=== PATIENT | female | born 1945 | race African-American/Black ===

== ENCOUNTER → 2017-04-08 | Outpatient (CLI) | payer OTHER ==
[~2017-04-08] MED LIST: ACETAMINOPHEN325 M1 PO; ACID CONTROL20 MG PO; AMLODIPINE BESY10 MG PO; AMLODIPINE BESYL5 MG PO; ASPIRIN325 PO; B-122500 MCG PO; BASE, PCCA RAPID1 GM PO; BENAZEPRIL HCL40 MG PO; BINOSTO70 MG PO; BISACODYL SUPP10 MG RECTAL; CHLORTHALIDONE25 MG PO; CLEOCIN HCL300 MG PO; CLONAZEPAM 0.50.5 M1 PO; CLONIDINE-TTS0.3 MG TRANSDERM; COLACE100 MG PO; ENDOCET 5-3251 EACH PO; EXELON1 EAC1 TRANSDERM; FLEXERIL PO; FOLIC ACID1 MG PO; FOSAMAX 70 MG T70 M1 PO; FOSAMAX 70 MG T70 MG PO; HYDROCODON-ACE1 EACH PO; JANUMET 50-5001 EACH PO; LASIX 40 MG TAB40 M1 PO; LEVAQUIN 500 M500 M2 PO; LEVEMIR SUBQ; LIDODERM 5%1 PATCH TRANSDERM; LOMOTIL TABLET1 EACH PO; METHOTREXATE 22.5 M1 PO; MOM PO; NORCO 5-325 TA1 EACH PO; NORTRIPTYLINE H50 MG PO; NORVASC10 MG PO; NYSTATIN1 EAC6; NYSTATIN15 GM TOP; PEPCID AC20 M1 PO; PERCOCET PO; PRAVASTATIN SOD40 MG PO; PREDNISOLONE 5 M5 M1 PO; PREDNISONE 5 MG5 M1; RANEXA500 MG; SENNA PO; SPIRONOLACTONE25 M1 PO; TOPROL XL100 MG PO; TOPROL XL50 MG PO; ULTRAM 50MG TAB50 MG PO; VICODIN 5-5001 EACH PO; VITAMIN E400 UNIT PO
--- NOTE | ~2017-04-08 | 2DMMODE ---
[facility] [place] [address] 2 D/M-MODE ECHOCARDIOGRAM Name: KITTY IRVING Room #: REG [facility]#: [id number] Admission: 04/08/17 Attend Phys: Jomar Crane MD Discharge: Date of : 49 Date of Service: 04/08/17 1533 Report #: [id number] THIS REPORT FOR: //name// APPROVED REPORT Study performed: 04/08/2017 14:20:23 EXAM: Comprehensive 2D, Doppler, and color-flow Echocardiogram Patient Location: Out-Patient Status: routine BSA: 1.86 HR: 56 bpm BP: 147/84 mmHg Rhythm: NSR Other Information Study Quality: Adequate Indications CAD HX: NSTEMI, HTN, HLP, DM 2D Dimensions RVDd: 39.76 mm LVEF(%): 65.24 (>50%) IVSd: 9.53 (7-11mm) LVOT Diam: 19.62 (18-24mm) LVDd: 46.23 mm PWd: 10.22 (7-11mm) Ascending Ao: 33.06 (22-36mm) LVDs: 29.73 (25-40mm) Aortic Root: 28.02 mm Jordan's LVEF: 65.24 % Volumes Left Atrial Volume (Systole) Single Plane 4CH: 154.35 mL Single Plane 2CH: 116.61 mL Aortic Valve AoV Peak Stanley.: 1.83 m/s AO Peak Gr.: 13.38 mmHg LVOT Max P.85 mmHg LVOT Max V: 1.49 m/s ANTHONY Vmax: 2.46 cm2 Mitral Valve E/A Ratio: 0.7 MV Decel. Time: 307.54 ms [facility] [employer] [place] [address] 2 D/M-MODE ECHOCARDIOGRAM Name: KITTY IRVING JEEVAN Room #: [facility]#: [id number] Admission: 04/08/17 Attend Phys: Jomar Crane MD Discharge: Date of : 49 Date of Service: 04/08/17 1533 Report #: [id number] MV E Max Stanley.: 0.85 m/s MV A Stanley.: 1.25 m/s MV PHT: 89.19 ms IVRT: 106.11 ms Pulmonary Valve PV Peak Stanley.: 1.26 m/s PV Peak Gr.: 6.36 mmHg Tricuspid Valve TR Peak Stanley.: 2.67 m/s RAP Estimate: 5.00 mmHg TR Peak Gr.: 28.46 mmHg PA Pressure: 34.00 mmHg Left Ventricle The left ventricle is normal size. There is normal left ventricular wall thickness. Mild basal septal hypertrophy is present. The left ventricular systolic function is normal. LVEF is 55-60%. Mild diastolic dysfunction is present (impaired relaxation pattern). Right Ventricle The right ventricle is normal size. The right ventricular systolic function is normal. Atria Left atrium is severely dilated. Right atrium is at the upper limits of normal. Aortic Valve The Aortic valve is mildly sclerotic. No aortic regurgitation is present. There is no aortic valvular stenosis. Mitral Valve The mitral valve is normal in structure. Trace mitral regurgitation. No evidence of mitral valve stenosis. Tricuspid Valve The tricuspid valve is normal in structure. Trace tricuspid regurgitation. Pulmonic Valve The pulmonary valve is normal in structure. There is no pulmonic valvular regurgitation. Great Vessels The aortic root is normal in size. The ascending aorta is normal in [facility] [address] [place] [address] 2 D/M-MODE ECHOCARDIOGRAM Name: KITTY IRVING Room #: REG [facility]#: [id number] Admission: 04/08/17 Attend Phys: Jomar Crane MD Discharge: Date of : 49 Date of Service: 04/08/17 1533 Report #: [id number] size. IVC is normal in size and collapses >50% with inspiration. Pericardium There is no pericardial effusion. <Conclusion> The left ventricle is normal size. There is normal left ventricular wall thickness. The left ventricular systolic function is normal. Mild diastolic dysfunction is present (impaired relaxation pattern). The right ventricle is normal size. Left atrium is severely dilated. The Aortic valve is mildly sclerotic. Trace mitral regurgitation. Trace tricuspid regurgitation. <ELECTRONICALLY SIGNED> By: Jomar Crane MD 04/08/17 1533 [id number] Jomar Crane MD /INF
== END ==
LOC: CV 10:29
DX: I25.10 Atherosclerotic heart disease of native coronary artery without angina pectoris (principal); I21.4 Non-ST elevation (NSTEMI) myocardial infarction; I10 Essential (primary) hypertension; E78.5 Hyperlipidemia, unspecified; E11.9 Type 2 diabetes mellitus without complications; I35.8 Other nonrheumatic aortic valve disorders

== ENCOUNTER → 2018-04-07 | Outpatient (CLI) | payer OTHER | LOC: NUC 08:56 | DX: I25.10 Atherosclerotic heart disease of native coronary artery without angina pectoris (principal); I10 Essential (primary) hypertension; I48.91 Unspecified atrial fibrillation; E11.9 Type 2 diabetes mellitus without complications; Z87.891 Personal history of nicotine dependence; Z79.4 Long term (current) use of insulin ==